=== PATIENT | male | born 1985 | race Caucasian/White ===

== ENCOUNTER 2016-08-17 12:24 | Emergency (ER) | payer OTHER ==
--- NOTE | 2016-08-17 15:22 | ER Document Report ---
ED Neck/Back Problem - General Mode of Arrival: Ambulatory Information source: Patient TRAVEL OUTSIDE OF THE [place] IN LAST 30 DAYS: Yes COUNTRY TRAVELED TO/FROM: [place] - [facility] Patient complains to provider of: Pain, Upper back, Lower back Onset: Other - 5 weeks ago Associated symptoms: Other - see notes above - General Chief Complaint: Back Pain Stated Complaint: BACK PAIN Notes: 31 year old male with no prior medical problems presents to the ED complaining of constant lower back pain that started 5 weeks ago when working out which has progressed to upper back pain yesterday. Patient reports no injury to his back, but states that his work in the involves lifting heavy objects. Patient went to a 'sick call' in [place] 3 weeks ago and was given 400 mg Motrin and stretching exercises. Patient returned to the 'sick call' a few days later and was given better stretches and told to apply moist heat. Patient states that his upper back pain started yesterday when packing to catch a 12 hour flight from [place] to [place]. Patient states that today while taking a shower his back locked up and he was unable to move for 5 minutes. Patient denies fecal or urinary incontinence or numbness or tingling down the leg. Patient does not have a primary care provider and states that he will have a follow up appointment in [place] through the as per their protocol after visiting the ED. (KATE BOSWELL) - Related Data Allergies/Adverse Reactions: No Known Allergies Allergy (Verified 08/17/16 12:48) Past Medical History - General Information source: Patient - Social History Smoking Status: Never Smoker Chew tobacco use (# tins/day): No Frequency of alcohol use: Rare Drug Abuse: None Family History: Reviewed & Not Pertinent Patient has suicidal ideation: No Patient has homicidal ideation: No Renal/ Medical History: Denies: Hx Peritoneal Dialysis Past Surgical History: Reports: Hx Oral Surgery - wisdom teeth Review of Systems - Review of Systems Constitutional: No symptoms reported EENT: No symptoms reported Cardiovascular: No symptoms reported Respiratory: No symptoms reported Gastrointestinal: No symptoms reported Genitourinary: No symptoms reported Male Genitourinary: No symptoms reported Musculoskeletal: See HPI, Back pain Skin: No symptoms reported Hematologic/Lymphatic: No symptoms reported Neurological/Psychological: No symptoms reported -: Yes All other systems reviewed and negative Physical Exam - General General appearance: Alert In distress: None - HEENT Head: Normocephalic, Atraumatic Eyes: Normal Extraocular movements intact: Yes Pupils: PERRL - Respiratory Respiratory status: No respiratory distress Breath sounds: Normal - Cardiovascular Rhythm: Regular Heart sounds: Normal auscultation - Abdominal Inspection: Normal - Back Back: Tender - right parathoracic tenderness to palpation. No: Normal - Extremities General upper extremity: Normal inspection, Normal ROM General lower extremity: Normal inspection, Normal ROM - Neurological Neuro grossly intact: Yes Cognition: Normal Orientation: AAOx4 K[place] Coma Scale Eye Opening: Spontaneous Martita Coma Scale Verbal: Oriented Martita Coma Scale Motor: Obeys Commands Martita Coma Scale Total: 15 Speech: Normal - Psychological Associated symptoms: Normal affect, Normal mood - Skin Skin Temperature: Warm Skin Moisture: Dry Skin Color: Normal Discharge - Discharge Clinical Impression: acute thoracic strain Condition: Stable Disposition: HOME, SELF-CARE Instructions: Muscle Strain ([facility]) Additional Instructions: Muscle Strain You have strained a muscle -- torn the fibers within the muscle. This often occurs with strenuous exertion, or during an injury that suddenly stretches the muscle. The seriousness of a strain varies. Some strains heal within days, others cause problems for months. X-rays cannot show a muscle strain. X-rays are taken only if symptoms suggest that a fracture could be present. The usual treatment of a muscle strain is rest and ice packs. Sometimes, a sling, splint, or crutches may be necessary to rest the muscle. The muscle can be used again once pain subsides. Severe strains require a special exercise and stretching program to prevent permanent stiffness and disability. Your doctor will advise you if this will be necessary. Call the doctor immediately if pain or swelling becomes severe, or if numbness or discoloration develop[place] increasing worsening or new symptoms Prescriptions: Hydrocodone/Acetaminophen [Meeker 5-325 mg Tablet] 1 tab PO QID #12 tablet Methocarbamol [Robaxin 500 mg Tablet] 500 mg PO BID #12 tablet Scribe Attestation: 08/17/16 15:38 I personally performed the services described in the documentation reviewed the documentation recorded by my scribe in my presence and it accurately and completely records my words and actions (TYRELL ASTORGA) Scribe Documentation - Scribe Written by Winifred:: Winifred Andrea, 08/17/2016 1545 acting as scribe for :: Bhavik
[2016-08-17] MEDS ORDERED: OXYCODONE-ACETAMINOPHEN 5-325 MG TABLET PO ONE (15:33)
[2016-08-17] MEDS ORDERED: DIAZEPAM INJ 10 MG/2 ML DISP.SYRIN IM ONE (15:33)
[2016-08-17 15:50] VITALS: BP 138/74
== END 2016-08-17 15:50 | disposition home or self-care (01) ==
LOC: ER 12:24
DX: S29.012A Strain of muscle and tendon of back wall of thorax, initial encounter (principal); X58.XXXA Exposure to other specified factors, initial encounter
CPT/HCPCS: 99283; 96372; J3360